=== PATIENT | female | born 1985 | race Two or more races ===

== ENCOUNTER 2024-08-31 10:09 | Observation (INO) | payer BC, SELFPAY ==
[2024-08-31 10:18] VITALS: BP 132/82; PULSE 79
[2024-08-31 10:21] VITALS: BMI 27.3
[2024-08-31 10:36] VITALS: BP 132/82; PULSE 79; RESP 100; RESP 18; TEMP 36.8
[2024-08-31 10:47] LABS: Collection Type, Urine Clean Catch; RBC,Urine 0 /hpf (0-3)
[2024-08-31 10:58] VITALS: BP 118/72; PULSE 70
[2024-08-31 11:36] LABS: Bacteria,Urine 3+; Bilirubin,Urine Negative (Negative); Blood,Urine Negative (Negative); Clarity,Urine Clear (Clear/Hazy); Color,Urine Colorless (Lt Yel-Yel); Glucose, Urine Negative (Negative); Ketones,Urine Negative (Negative); Leukocyte Esterase,Urine Negative (Negative); Nitrite,Urine Negative (Negative); Protein,Urine Negative (Neg - Trace); Specific Gravity,Urine 1.004 (1.001-1.035); Squamous Epithelial Cell,Urine 4 /hpf (0-5); Urobilinogen,Urine Negative mg/dL (0.0-1.0); WBC,Urine 1 /hpf (0-5)
[2024-08-31 11:49] LABS: Sperm,Urine Absent
== END 2024-08-31 12:11 | disposition home or self-care (01) ==
PROVIDERS: Admitting Provider Obstetrics & Gynecology; Visit Provider Obstetrics & Gynecology
DX: O26.893 Other specified pregnancy related conditions, third trimester (principal); Z3A.32 32 weeks gestation of pregnancy; R25.2 Cramp and spasm
CPT/HCPCS: 59025; 59899; 81001

== ENCOUNTER 2024-10-06 10:21 | Outpatient (RCR) | payer BC, SELFPAY ==
--- NOTE | 2024-10-06 10:38 | XR_ITS ---
Examination: Biophysical profile, ultrasound Date and time of exam: October 06, 2024 1043 hours INDICATIONS: Diagnosis advanced maternal age Technique: Multiple transabdominal sonographic images of the pelvis abdomen obtained. Attention is directed to the breathing movement, gross body movement, amniotic fluid volume and tone. Findings: Amniotic fluid index 9.0 cm Total biophysical profile is 8 of 8. breathing movement is 2. Gross body movement is 2. tone is 2. Qualitative amniotic fluid volume is 2 Impression: Biophysical profile is 8 of 8.
[2024-10-06 11:02] VITALS: BP 126/64; PULSE 61; RESP 16; TEMP 36.4
== END 2024-10-06 23:59 | disposition home or self-care (01) ==
LOC: S4S1 10:21
PROVIDERS: Referring Provider Student in an Organized Health Care Education/Training Program; Visit Provider Student in an Organized Health Care Education/Training Program
DX: O09.523 Supervision of elderly multigravida, third trimester (principal); Z3A.37 37 weeks gestation of pregnancy
CPT/HCPCS: 59025; 76819

== ENCOUNTER 2024-10-14 02:01 | Inpatient (IN) | payer BC, SELFPAY ==
[2024-10-14] VITALS (51 sets, daily range): BP systolic 0–175; BP diastolic 0–97; PULSE 67–103; RESP 13–99; TEMP 36.7–36.9; O2SAT 96–100; BMI 28.1
--- NOTE | 2024-10-14 03:00 | ESHP_ITS ---
Documentation for date of: 10/14/24 OB Labor/Induct. HPI History of Present Illness Chief complaint: 39 y/o LUKE [id number] presents to L&D in labor at 4 cm : 7 Para: 3 Term pregnancies: 3 pregnancies: 0 Living children: 3 History of Abortions: Spontaneous and Elective: 3 History of Vaginal deliveries: 3 History of sections: No History of : No Date of last menstrual period: 01/21/24 CLAUDIO: 10/27/24 Gestational Age (weeks): 38 Gestational Age (days): 1 Gestational age based on last menstrual period: 38 History of present illness: 39 y/o LUKE [id number] presents to L&D in labor at 4/90/0 vertex kavon 2-3 minutes. GBS is neg, pt has been unremarkable with the exception of AMA. NIPT and AFP is neg. Hx of nvdx3 and 2 SAB and 1 induced AB. EFW 3400g History of Present Dating criteria: based on LMP only Adequate Care: Yes Ultrasounds: normal 1st trimester US and normal mid trimester US Obstetrical complications: other (AMA) Labs Maternal Blood Type: O Pos Labs: Positive: Rubella Titre, Negative: RPR, Hepatitis B, HIV, Chlamydia, Gonorrhea and Group Beta Strep and Unknown: Herpes Type 1, Herpes Type 2 and Covid-19 Review of Systems Review of Systems Systems Reviewed: All systems reviewed, normal except as documented Past Medical History Surgical History SURGICAL: Negative Section Meds Home Medications and Allergies Home Medications ?Medication ?Instructions ?Recorded ?Confirmed ?Type vitamin with calcium tab 08/31/24 History no.72-iron 27 mg-folic acid 1 mg tablet (WesTab Plus) Allergies Allergy/AdvReac Type Severity Reaction Status Date / Time No Known Allergies Allergy Verified 10/14/24 02:40 OB Exam Physical Exam Vital signs: Temp Pulse Resp BP Pulse Ox 98.5 F 75 16 140/84 H 99 10/14/24 02:17 10/14/24 02:59 10/14/24 02:17 10/14/24 02:59 10/14/24 03:18 Constitutional Constitutional: mild distress (Secondary topainful contractions) Routine HEENT Exam Head: Present normocephalic and atraumatic Eye: Present EOMI, PERRL and normal accommodation ENT: Present mucous membranes moist Routine Neck Exam Neck: Present full ROM Routine Respiratory Exam Respiratory: Absent respiratory distress Routine Cardiovascular Exam Cardiovascular: Present RRR Routine Abdominal Exam Abdominal: Present soft Comments: Gravid Uterus EFW 3400g Routine Exam External: Present normal urethra appearance; Absent lesions Detailed Labor and Delivery Exam Dilation (cm): 4 Effacement (%): 80 Cervix position: mid station: 0 Consistency: soft Presentation: Vertex Membranes: intact Baseline heart rate: 140 monitor accelerations: 15x15 monitor decelerations: Variable halfway variability: Moderate (11-25) Contraction frequency (min): 2-3 Contraction duration (sec): 60-90 Tachysystole: No Contraction intensity: Moderate Routine Extremities Exam Extremities: Present full ROM Routine Back/Spine/Pelvis Exam Back/Spine: Present full ROM Routine Skin Exam Skin: Present intact, dry and warm Routine Neurological Exam Neurological: Present alert, oriented X3 and CN II-XII intact Routine Psychiatric Exam Psychiatric: Present normal affect and normal thought process OB Results Labs 10/14/24 02:52 10/14/24 02:52 OB Assessment & Plan Assessment and Plan (1) Normal labor: Status: Acute (2) AMA (advanced maternal age) primigravida 35+: Status: Acute (3) with 38 completed weeks gestation: Status: Acute Additional Plan Induction method: none Plan: augmentation, anticipate NVD and consult MD prn Additional Plan Comment: Routine admit orders Continuous EFM (2) AMA (advanced maternal age) primigravida 35+ Qualifiers: Trimester: third trimester Qualified Code(s): O09.513 - Supervision of elderly primigravida, third trimester
[2024-10-14 03:03] LABS: Collection Type, Urine Clean Catch
[2024-10-14 03:04] LABS: Basophils % (Auto) 0 % (0-2.5); Eosinophils # (Auto) 0.1 Thou/mm3 (0.0-0.5); Eosinophils % (Auto) 1 % (0-10); Hematocrit 35.8 % (36.0-46.0); Hemoglobin 12.1 g/dL (12.0-16.0); Immature Granulocytes % (Auto) 1 % (0-0); Immature Granulocytes Auto 0.09 Thou/mm3 (0.00-0.00); Lymphocytes # (Auto) 2.5 Thou/mm3 (1.0-4.8); Lymphocytes % (Auto) 20 % (10-50); Mean Corpuscular HGB Conc 33.8 g/dl (31.0-37.0); Mean Corpuscular Hemoglobin 28.1 pg (25.0-35.0); Mean Corpuscular Volume 83 fL (80-100); Monocytes # (Auto) 0.7 Thou/mm3 (0.0-0.8); Monocytes % (Auto) 6 % (0-12); Neutrophils # (Auto) 8.8 Thou/mm3 (1.8-7.7); Neutrophils % (Auto) 72 % (37-80); Nucleated Red Blood Cell % 0 /100 WBC (0); Platelet Count 288 Thou/mm3 (140-440); RDW Standard Deviation 43.8 fL (36.4-46.3); Red Blood Count 4.31 Miln/mm3 (4.00-5.20); White Blood Count 12.2 Thou/mm3 (3.6-11.0)
[2024-10-14 03:28] LABS: Alanine Aminotransferase 26 U/L (10-49); Albumin/Globulin Ratio 1.3 (1.2-2.2); Alkaline Phosphatase 121 U/L (46-116); Anion Gap 10 (7-16); Aspartate Amino Transferase 30 U/L (0-34); BUN/Creatinine Ratio 22 Ratio (12-20); Bilirubin,Total 0.3 mg/dL (0.3-1.2); Blood Urea Nitrogen 11 mg/dL (9-23); Calcium 9.4 mg/dL (8.3-10.6); Calcium (Corrected) 9.4 mg/dL (8.5-10.1); Carbon Dioxide 20.6 mMol/L (20.0-31.0); Chloride 108 mMol/L (98-107); Creatinine (Component) 0.5 mg/dL (0.6-1.3); Estimated Creatinine Clearance 128.7 mL/min (>60); Glucose 92 mg/dL (74-106); Osmolality,Calculated 276 (275-295); Potassium 3.7 mMol/L (3.4-5.1); Sodium 139 mMol/L (136-145); Uric Acid 3.2 mg/dL (3.1-7.8); eGFR > 60 See Note
[2024-10-14 03:29] LABS: Fibrinogen 419 mg/dL (175-375); INR 0.9 (0.9-1.3); Partial Thromboplastin Time 23.8 Seconds (22.0-36.0)
--- NOTE | 2024-10-14 03:30 | PD.LDPN ---
Documentation for date of: 10/14/24 OB Labor Progress Note Pain Control Pain control: tolerating well Pelvic Exam Dilation (cm): 5 Effacement (%): 90 station: 0 Amniotic membrane status: Ruptured (AROM- clear) Contractions Monitor mode: External Contraction frequency: 2-3 Contraction duration: 60-90 Contraction phase: Contraction Contraction intensity: Moderate Status status: Category ll Assessment and Plan Assessment: active labor Plan OB labor note: continuous present management Comments: AROM performed- clear fluids Anticipate
[2024-10-14 03:46] LABS: Bacteria,Urine 1+; Bilirubin,Urine Negative (Negative); Blood,Urine Negative (Negative); Clarity,Urine Clear (Clear/Hazy); Color,Urine Lt-Yellow (Lt Yel-Yel); Glucose, Urine Negative (Negative); Ketones,Urine Negative (Negative); Leukocyte Esterase,Urine Negative (Negative); Nitrite,Urine Negative (Negative); Protein,Urine Negative (Neg - Trace); RBC,Urine 1 /hpf (0-3); Specific Gravity,Urine 1.012 (1.001-1.035); Squamous Epithelial Cell,Urine 5 /hpf (0-5); Urobilinogen,Urine Negative mg/dL (0.0-1.0); WBC,Urine < 1 /hpf (0-5)
[2024-10-14 03:47] LABS: Syphilis Nonreactive (Nonreactive)
[2024-10-14] MEDS: fentaNYL CIT INJ 50 mCg/ML AMP 2ML 100 MCG IV (03:52)
[2024-10-14] MEDS: TERBUTALINE SULF INJ 1 MG/ML VIAL 0.25 MG SC (04:12)
[2024-10-14] MEDS: MINERAL OIL 30 ML UDC TOP (04:34)
[2024-10-14] MEDS: LIDOCAINE HCL 1% 20 ML VIAL INFL (04:34)
[2024-10-14] MEDS: IBUPROFEN TAB 400 MG TABLET 800 MG PO ×2 (04:34→15:12)
[2024-10-14] MEDS: BENZO/LANO/ALOE (Dermoplast) 60 GM CAN 1 SPRAY TOP (04:35)
[2024-10-14] MEDS: OXYTOCIN in NS 20 units 20 UNIT/1,000 ML BAG 125 UNIT IV (04:36)
--- NOTE | 2024-10-14 04:58 | OBDSUM_ITS ---
Data (Brown) Data Hx Section: No Maternal Blood Type: O Pos Rubella Titre: Positive RPR: Non-reactive Labs: Negative: RPR, Hepatitis B, HIV, Chlamydia, Gonorrhea and Group Beta Strep and Unknown: Herpes Type 1 and Herpes Type 2 : 7 Para: 3 Term: 3 : 0 Livin : 3 Delivery Data (Brown) Labor Data Stimulated/Augmented: No Induction: No Rupture Type: AROM Amniotic Fluid: Clear Delivery Data EDC: 10/27/24 EDC calculated by:: LMP Delivery Date: 10/14/24 Delivery Time: 04:18 Gestational age (weeks): 38 Gestational age (days): 1 Placenta Delivery Date: 10/14/24 Placenta Delivery Time: 04:21 Delivered by: Iris Bell Delivery nurse: jhonathan garg nurse: gaurang arthur Notched Blade Loader at delivery: No Other staff at delivery: HATTIE RNC, EM weaving loom operator Method Delivery: Vaginal Presentation: Vertex Position: OA Anesthesia Type Primary Anesthesia: Local Delivery Room Medications Other Intrapartum Medications: No Post Delivery Medications N/A: No Placenta Placenta Delivery: Spontaneous Placenta Cultures Obtained: No Placenta Sent for Examination: No Cord Sample: Cord Blood Obtained Episiotomy Episiotomy: None EBL Estimated blood loss (ml): 200 Umbilical Cord Umbilical Vessels: 3 Nuchal Cord: Not Applicable Body Cord: Not Applicable Additional Procedures Fetus had variable decelerations a category 2 tracing went in and did intrauterine resuscitation measures placed in FSE. Patient was in hands and knees. Was 5-6 and baby moved to complete within minutes and after a few pushes patient had an of a viable female infant. 's anterior shoulder delivered with gentle downward traction subsequent delivery the posterior shoulder and the body without complications. placed on mother's abdomen for vigorous cry upon delivery. Cord was clamped cut by FOB. Cord blood obtained. Three-vessel cord noted. Placenta expelled spontaneously and intact. Patient sustained a small skin laceration at the perineum. Repaired using a 4- 0 chromic on an SH suture. Excellent hemostasis achieved after vigorous fundal massage and removal of clots from the posterior fornix. EBL 200. Sponge and needle count correct. Mother and baby stable, skin to skin and bonding in LDR. [place] Data (Brown) Data order: 1 Infant Gender: Female Identification band number: [id number] Weight Grams: [id number] length: 45.72 cm
[2024-10-14] MEDS: DOCUSATE SOD 100 MG CAPSULE PO (08:53)
[2024-10-14 09:53] LABS: Basophils # (Auto) 0.1 Thou/mm3 (0.0-0.2); Basophils % (Auto) 0 % (0-2.5); Eosinophils % (Auto) 0 % (0-10); Hemoglobin 10.6 g/dL (12.0-16.0); Immature Granulocytes % (Auto) 1 % (0-0); Lymphocytes # (Auto) 1.6 Thou/mm3 (1.0-4.8); Lymphocytes % (Auto) 8 % (10-50); Mean Corpuscular HGB Conc 34.2 g/dl (31.0-37.0); Mean Corpuscular Hemoglobin 28.5 pg (25.0-35.0); Mean Corpuscular Volume 83 fL (80-100); Monocytes # (Auto) 0.8 Thou/mm3 (0.0-0.8); Monocytes % (Auto) 4 % (0-12); Neutrophils # (Auto) 17.5 Thou/mm3 (1.8-7.7); Neutrophils % (Auto) 87 % (37-80); Nucleated Red Blood Cell % 0 /100 WBC (0); Platelet Count 263 Thou/mm3 (140-440); RDW Standard Deviation 43.7 fL (36.4-46.3); Red Blood Count 3.72 Miln/mm3 (4.00-5.20); White Blood Count 20.1 Thou/mm3 (3.6-11.0)
[2024-10-15 04:18] VITALS: BP 127/71; PULSE 78; RESP 17; TEMP 36.5; O2SAT 97
--- NOTE | 2024-10-15 07:12 | ESPR_ITS ---
Subjective Subjective Interval history: Delivery type: / Patient doing well this morning. No acute complaints. Ambulating, tolerating p.o. and voiding without difficulty. HTN/Pre-Eclampsia screen: No chest pain, shortness of breath, headache, visual changes, epigastric or right upper quadrant pain. Breast-feeding, lochia diminishing. Bowel: Flatus+/ BM+ Exam Vital Signs Temp Pulse Resp BP Pulse Ox O2 Del Method 97.7 F 78 17 127/71 97 Room Air 10/15/24 04:18 10/15/24 04:18 10/15/24 04:18 10/15/24 04:18 10/15/24 04:18 10/15/24 04:18 Constitutional Constitutional: no acute distress Routine HEENT Exam Head: Present normocephalic and atraumatic Eye: Present EOMI and PERRL ENT: Present mucous membranes moist Routine Neck Exam Neck: Present supple and trachea midline Routine Respiratory Exam Respiratory: Present chest non-tender, lungs clear, normal breath sounds and no resp distress Routine Cardiovascular Exam Cardiovascular: Present RRR Routine Abdominal Exam Abdominal: Present soft and normoactive bowel sounds Routine Extremities Exam Extremities: Present full ROM Routine Skin Exam Skin: Present intact, dry and warm Routine Neurological Exam Neurological: Present alert, oriented X3 and CN II-XII intact Routine Psychiatric Exam Psychiatric: Present normal affect and normal thought process Objective Labs 10/14/24 09:24 10/14/24 02:52 Labs: Laboratory Results - last 24 hr 10/14/24 09:24 WBC 20.1 H D RBC 3.72 L Hgb 10.6 L Hct 31.0 L MCV 83 MCH 28.5 MCHC 34.2 RDW Std Deviation 43.7 Plt Count 263 Neut % (Auto) 87 H Lymph % (Auto) 8 L [place] % (Auto) 4 Eos % (Auto) 0 Baso % (Auto) 0 Neut # (Auto) 17.5 H Lymph # (Auto) 1.6 [place] # (Auto) 0.8 Eos # (Auto) 0.0 Baso # (Auto) 0.1 Immature Gran # (Auto) 0.10 H Absolute Nucleated RBC 0.00 Immature Gran % 1 H Nucleated RBC % 0 Assessment & Plan Problem List (1) Normal labor: Status: Acute Assessment and plan: 1. Continue routine /post-op care 2. Labs reviewed, cbc appropriate 3. Remove dressing/López 4. Encourage to ambulate, shower 5. Encourage PO intake, breast feeding (2) AMA (advanced maternal age) primigravida 35+: Status: Acute (3) with 38 completed weeks gestation: Status: Acute Time Spent With Patient Time: Total time spent is greater than 50% in coordination of care (as documented) at patient's floor/unit and/or counseling patient:
--- NOTE | 2024-10-15 07:13 | ESDS_ITS ---
DS: Providers Provider Date of admission: 10/14/24 02:47 Primary care physician: Physician No Primary/Family Admitting Provider: Shabbir Mittal MD Attending Provider on Admission: Ruperto Rahman MD Consults: 10/14/24 05:42 Referral Routine Comment: Attending Provider on DC: Ruperto Rahman MD Discharging Provider: Ruperto Rahman MD DS: Diagnosis Discharge Diagnosis (1) Normal labor: Status: Acute (2) with 38 completed weeks gestation: Status: Acute (3) AMA (advanced maternal age) primigravida 35+: Status: Acute Problem List Completed Was Problem List Reviewed/Reconciled?: Yes Summary/Hosp Course Brief History: 39 y/o AMA presents to L&D in labor at 4/90/0 vertex kavon 2-3 minutes. GBS is neg, pt has been unremarkable with the exception of AMA. NIPT and AFP is neg. Hx of nvdx3 and 2 SAB and 1 induced AB. EFW 3400g Peripartum Data Delivery Method: Normal Vaginal Delivery Episiotomy Description: None Time Spent with Patient Time attestation: Total time spent providing and/or coordinating discharge services: Exam Vital Signs Temp Pulse Resp BP Pulse Ox O2 Del Method 97.7 F 78 17 127/71 97 Room Air 10/15/24 04:18 10/15/24 04:18 10/15/24 04:18 10/15/24 04:18 10/15/24 04:18 10/15/24 04:18 Discharge Plan Plan Patient Disposition: HOME (Self Care) Patient condition on transfer: Stable Prescriptions/Referrals Prescriptions/Med Rec: New docusate sodium [Colace] 100 mg capsule 100 mg PO BID Qty: 60 0RF ibuprofen 600 mg tablet 600 mg PO Q6H PRN (Reason: pain) Qty: 90 0RF lanolin 50 % ointment 1 applic topical TID PRN (Reason: skin irritation) Qty: 15 0RF Continued WesTab Plus 27 mg iron- 1 mg tablet Patient Comments: take 1 tablet by mouth once daily Referrals: No Primary/Family,Physician [Primary Care Provider] - Iris Bell CNM [Certified Nurse Attendant Child Activity] - Patient/Caregiver Discharge Instructions Meds to Beds: No Discharge Activity: activity as tolerated Other Discharge Activity Instructions:: Follow-up with Iris Bell CNM in 3 weeks Education Materials: After a Vaginal , After Delivery [place] Concerns Print Language: Tamazight Stand Alone Forms: Renetta Award Info., Patient Portal Info Letter Discharge Order Discharge Orders: Discharge (Routine); Ordered 10/15/24 Ordered By: Ruperto Rahman Planned Discharge Date 10/15/24 (3) AMA (advanced maternal age) primigravida 35+ Qualifiers: Trimester: third trimester Qualified Code(s): O09.513 - Supervision of elderly primigravida, third trimester
[2024-10-15 08:30] VITALS: BP 131/76; PULSE 77; RESP 18; TEMP 36.6; O2SAT 98
== END 2024-10-15 14:31 | disposition home or self-care (01) | DRG 807 ==
LOC: S4SX 06:06 → S4NX 06:17
PROVIDERS: Nurse Practitioner Women's Health; Admitting Provider Obstetrics & Gynecology; Visit Provider Obstetrics & Gynecology
DX: O76 Abnormality in fetal heart rate and rhythm complicating labor and delivery (principal); Z37.0 Single live birth; Z3A.38 38 weeks gestation of pregnancy; O70.0 First degree perineal laceration during delivery
CPT/HCPCS: 36415; 59025; 80053; 81001; 84550; 85025; 85384; 85610; 85730; 86780; 86850; 86900; 86901; J2590; J3010; J3105; J3490; A9270